=== PATIENT | female | born 1950 | race Caucasian/White ===

== ENCOUNTER 2023-01-10 17:16 | Emergency (ER) | payer MEDICARE, SELFPAY ==
[2023-01-10 17:26] VITALS: BP 94/55; PULSE 86; RESP 18; TEMP 36.8; O2SAT 99; BMI 19.3
--- NOTE | 2023-01-10 18:39 | XRR_ITS ---
PROCEDURE INFORMATION: Exam: XR Chest Exam date and time: 01/10/2023 6:55 PM Age: 72 years old Clinical indication: Chest wall pain; Additional info: Ble edema, HX chf, increased cough, at home o2 required TECHNIQUE: Imaging protocol: Radiologic exam of the chest. Views: 1 view. COMPARISON: No relevant prior studies available. FINDINGS: Lungs: Mild discoid atelectasis or scar in both lung bases. Changes of emphysema. Coarse interstitial opacities in the upper lobes. No consolidation. Pleural spaces: Unremarkable. No pleural effusion. No pneumothorax. Heart/Mediastinum: Unremarkable. No cardiomegaly. Diaphragm: Elevation of left diaphragm. Bones/joints: Multiple midthoracic and lumbar kyphoplasties. Curvature of the spine. XR/XR chest 1V [id number] IMPRESSION: 1. Coarse interstitial opacities in the upper lobes could represent chronic scarring. Infectious bronchiolitis is not excluded.
--- NOTE | 2023-01-10 18:50 | ED_ITS ---
HPI - Extremity Problem General: Chief complaint: Extremity Problem,Nontraumatic Stated complaint: right leg problems Time Seen by Provider: 01/10/23 17:57 Source: patient Mode of arrival: wheelchair Limitations: no limitations History of Present Illness: Patient presents to the emergency department today for evaluation treatment of continued bilateral lower extremity edema and left leg erythema. Patient states she does have CHF as well as COPD and is chronically on 2 L by nasal cannula at home. She notes that since November she has had increased lower extremity edema and redness in her legs. Patient lives closer to [place] and states she was seen and evaluated at the emergency department in [place] where she was told she was having COPD issues. She states yesterday-due to the leaking of fluid from her legs, went to [place] to [facility] for evaluation. She states she waited 14+ hours to be seen and they told her she had an infection. They gave her doxycycline. She reports she takes 40mg of lasix twice a day. Patient also notes a history of MRSA sepsis in the past. She denies trauma in the lower extremities, fever, or need to increase her nasal O2. Patient does however note an increase in cough which has become productive. Patient is here in [place] as she was attempting to go see her son but could not stand the continued swelling and decided to come in for reevaluation. Review of Systems General: Reports: 10 or more systems reviewed and unremarkable except in HPI and below Physical Exam Const: COMMON NORMALS: no acute distress (Patient lying under blankets in the bed, appears fatigued), patient oriented x3 and alert HENMT: COMMON NORMALS: normocephalic, atraumatic and hearing grossly normal bilaterally HEAD & SCALP: normocephalic and atraumatic Eye: COMMON NORMALS: Equal, round and reactive pupils present, EOMs intact bilaterally and conjunctivae normal CONJUNCTIVA: Yes conjunctivae normal PUPIL: Yes Equal, round and reactive pupils present Neck/C-Spine: COMMON NORMALS: full ROM Lymph: LYMPHATIC: no lymphadenopathy noted Resp: COMMON NORMALS: normal respiratory effort, No retractions and No use of accessory muscles OTHER: Patient on baseline 2 L nasal cannula comfortably. Cardio: COMMON NORMALS: regular rate RATE: regular rate GI: OTHER: Abdomen is soft, nontender on palpation. Extremity: NARRATIVE EXTREMITY EXAM: Patient brought back to room in a wheelchair. She does have 2+ pitting edema in the lower extremities bilaterally starting approximately mid shins. There is redness noted-especially to the left leg and, several scabbed over wounds noted to the anterior shins. Patient has redness of the toes on the left foot. No developed redness on the right foot or toes. No signs of open draining wounds. Neuro: COMMON NORMALS: patient oriented x3 SENSORIUM/ORIENTATION: Yes alert Psych: COMMON NORMALS: mental status grossly normal, Normal thought process present, cooperative and normal affect THOUGHT PROCESS: Normal thought process present Skin: COMMON NORMALS: no rashes or lesions noted and turgor normal GENERAL SKIN EXAM: no rashes or lesions noted and turgor normal Course Vital Signs: Vital signs: Vital Signs Temperature 98.2 F 01/10/23 17:26 Pulse Rate 79 01/10/23 20:53 Respiratory Rate 16 01/10/23 20:53 Blood Pressure 114/59 01/10/23 20:53 Pulse Oximetry 98 01/10/23 20:53 Oxygen Delivery Me thod Nasal Cannula 01/10/23 17:26 Oxygen Flow Rate 2 01/10/23 17:26 MDM - Extremity (Nontraumatic) Medical Decision Making Patient presents emergency department today for continued concerns of bilateral lower extremity edema, weeping, redness of the left leg and foot, and increased fatigue. Patient does not have any medical history documented in the [facility] system but she does report COPD requiring oxygen, CHF, a history of MRSA, and anemia. Patient has been seen and evaluated twice in the last couple of months and was just started on doxycycline yesterday. Patient is evaluation here does show a very small bump in BNP without signs of sepsis. Patient has elevated creatinine today and chest x-ray is concerning for potential infiltrate in the upper lobes bilaterally. I did reach out to the hospitalist here to discuss whether or not patient evaluation today warranted inpatient therapy however, Dr. Maya indicated that with stable vital signs, CHF not requiring an increase in her baseline nasal cannula oxygen, and labs that appear chronic and stable, would recommend she follow-up with primary care and encouraged continuation of the doxycycline. Discussed with patient the doxycycline will give us staph, strep coverage for potential lower leg infection, covers for MRSA, and also will cover for any potential pneumonias. Patient indicated she was planning on returning home this evening and stated she would notify her primary care doctor as she may need some adjusting on her Lasix. Patient verbalized understanding and agreement to treatment plan. Differential Diagnosis Likely cellulitis and lower extremity edema; Unlikely herpes zoster, gout, superficial thrombophlebitis or deep vein thrombosis of lower extremity Lab Data 01/10/23 18:55 01/10/23 18:55 Radiology Impressions Chest X-Ray 01/10/23 18:39 IMPRESSION: 1. Coarse interstitial opacities in the upper lobes could represent chronic scarring. Infectious bronchiolitis is not excluded. Laboratory Results WBC 6.28 10^3/uL (3.29-11.43) 01/10/23 18:55 RBC 3.07 10^6/uL (3.85-5.65) L 01/10/23 18:55 Hgb 8.90 g/dL (11.27-16.99) L 01/10/23 18:55 Hct 28.0 % (36-47) L 01/10/23 18:55 MCV 91.2 fl (85-98) 01/10/23 18:55 MCH 29.0 pg (27-33) 01/10/23 18:55 MCHC 31.8 g/dL (30-55) 01/10/23 18:55 RDW 15.5 % (12.1-15.1) H 01/10/23 18:55 Plt Count 297 10^3/cmm (157-399) 01/10/23 18:55 MPV 10.8 fL (7.4-10.4) H 01/10/23 18:55 Neut % (Auto) 78.0 % 01/10/23 18:55 Lymph % (Auto) 11.6 % 01/10/23 18:55 [place] % (Auto) 8.1 % 01/10/23 18:55 Eos % (Auto) 0.2 % 01/10/23 18:55 Baso % (Auto) 0.5 % 01/10/23 18:55 Neut # (Auto) 4.90 10^3/uL (1.8-7.7) 01/10/23 18:55 Lymph # (Auto) 0.7 10^3/uL (0.8-4.8) L 01/10/23 18:55 [place] # (Auto) 0.5 10^3/uL (0.2-0.9) 01/10/23 18:55 Eos # (Auto) 0.0 10^3/uL (0.0-0.8) 01/10/23 18:55 Baso # (Auto) 0.0 10^3/uL (0.0-0.1) 01/10/23 18:55 Nucleated RBC % (auto) 0 % 01/10/23 18:55 Nucleated RBCs # 0.0 /100WBC 01/10/23 18:55 Sodium 139 mmol/L (136-145) 01/10/23 18:55 Potassium 4.7 mmol/L (3.5-5.1) 01/10/23 18:55 Chloride 100 mmol/L (98-107) 01/10/23 18:55 Carbon Dioxide 27 mmol/L (22-29) 01/10/23 18:55 Anion Gap 16.7 (5-19) 01/10/23 18:55 BUN 31 mg/dL (8-23) H 01/10/23 18:55 Creatinine 2.0 mg/dL (0.5-0.9) H 01/10/23 18:55 GFR Calculation Not Reportable 01/10/23 18:55 Glucose 114 mg/dL (65-115) 01/10/23 18:55 Calculated Osmolality 295 mOsm/kg (285-295) 01/10/23 18:55 Lactic Acid 1.7 mmol/L (0.5-2.2) 01/10/23 18:55 Calcium 9.9 mg/dL (8.5-10.5) 01/10/23 18:55 Total Bilirubin 0.2 mg/dL (0.15-1.2) 01/10/23 18:55 AST 12 U/L (0-32) 01/10/23 18:55 ALT 11 U/L (0-33) 01/10/23 18:55 Alkaline Phosphatase 61 U/L (35-105) 01/10/23 18:55 NT-Pro-B Natriuret Pep 556 pg/mL (0-125) H 01/10/23 18:55 Total Protein 6.3 g/dL (6.6-8.7) L 01/10/23 18:55 Albumin 3.7 g/dL (3.5-5.2) 01/10/23 18:55 Globulin 2.6 g/dL (1.3-4.6) 01/10/23 18:55 Procalcitonin 0.09 ng/mL (0-0.5) 01/10/23 18:55 All radiology interpretation(s) finalized by discharge Discharge Plan Discharge Patient Disposition: Home Clinical Impression: Lower extremity edema, COPD (chronic obstructive pulmonary disease), Supplemental oxygen dependent Condition: Stable Discharge Orders: Discharge ED (Routine); Ordered 01/10/23 Ordered By: Callie Causey Discharge Diet: Cardiac Discharge Activity: Increase activity as tolerated Activity Restrictions/Additional Instructions: Evaluation today shows continued issues with chronic illness. You still have findings of heart enlargement consistent with CHF but no signs of any fluid ac cumulation in your chest concerning for pleural effusion. You do have some findings of suspected infiltrate in the upper lobes which could indicate infection but, doxycycline gives very good coverage for pneumonias and would encourage you to continue taking this antibiotic for this coverage. After speaking with the hospitalist, he agrees that the lower extremity edema may require some medication adjustments and would recommend notifying your primary care first thing in the morning. It is possible to develop cellulitis even without an elevated white blood cell count-your white blood cell count is normal here today, but, with your history of MRSA-doxycycline will give us proper coverage for MRSA and other staph and strep strains regularly found in skin infections. Continue to take your antibiotic as prescribed. Call your primary care for a follow-up as soon as possible. Coding Level of Care Code ED [employer] for [facility]
[2023-01-10 19:13] LABS: Basophils % 0.5 %; Eosinophils % 0.2 %; Lymphocytes # 0.7 10^3/uL (0.8-4.8); Lymphocytes % 11.6 %; Mean Corpuscular HGB Conc 31.8 g/dL (30-55); Mean Corpuscular Volume 91.2 fl (85-98); Mean Platelet Volume 10.8 fL (7.4-10.4); Monocytes # 0.5 10^3/uL (0.2-0.9); Monocytes % 8.1 %; Nucleated Red Blood Cells % 0 %; Platelet Count 297 10^3/cmm (157-399); Red Blood Count 3.07 10^6/uL (3.85-5.65); Red Cell Distribution Width 15.5 % (12.1-15.1); White Blood Count 6.28 10^3/uL (3.29-11.43)
[2023-01-10 19:20] LABS: Lactic Sepsis W/Reflex 1.7 mmol/L (0.5-2.2)
[2023-01-10 19:31] LABS: NT Pro B Type Natriuretic Pept 556 pg/mL (0-125); Procalcitonin 0.09 ng/mL (0-0.5)
[2023-01-10 19:42] LABS: Alanine Aminotransferase 11 U/L (0-33); Albumin Level 3.7 g/dL (3.5-5.2); Alkaline Phosphatase 61 U/L (35-105); Anion Gap 16.7 (5-19); Aspartate Amino Transferase 12 U/L (0-32); Blood Urea Nitrogen 31 mg/dL (8-23); Calcium 9.9 mg/dL (8.5-10.5); Carbon Dioxide 27 mmol/L (22-29); Chloride 100 mmol/L (98-107); Globulin 2.6 g/dL (1.3-4.6); Glucose 114 mg/dL (65-115); Osmolality Calculated 295 mOsm/kg (285-295); Potassium 4.7 mmol/L (3.5-5.1); Sodium 139 mmol/L (136-145); Total Bilirubin 0.2 mg/dL (0.15-1.2); Total Protein 6.3 g/dL (6.6-8.7)
[2023-01-10 20:53] VITALS: BP 114/59; PULSE 79; RESP 16; O2SAT 98
== END 2023-01-10 22:05 | disposition home or self-care (01) ==
PROVIDERS: Emergency Provider Physician Assistant
DX: R60.0 Localized edema (principal); J44.9 Chronic obstructive pulmonary disease, unspecified; Z99.81 Dependence on supplemental oxygen
CPT/HCPCS: 36415; 71045; 80053; 83605; 83880; 84145; 85025; 87040; 99284